=== PATIENT | female | born 1940 | race Two or more races ===

== ENCOUNTER 2023-07-07 10:45 | Inpatient (IN) | payer OTHER ==
[~2023-07-07] VITALS: Ht 154.9 cm; Wt 65.8 kg
[2023-07-07] MEDS ORDERED: SINGULAIR10 MG (15:28)
[2023-07-07] MEDS ORDERED: AMITRIPTYLINE H10 MG (15:29)
[2023-07-07] MEDS ORDERED: NEURONTIN800 MG (15:29)
[2023-07-07] MEDS ORDERED: ZANAFLEX2 M1 (15:29)
[2023-07-07] MEDS ORDERED: PANTOPRAZOLE SO40 MG (15:29)
[2023-07-07] MEDS ORDERED: PEPCID AC20 MG (15:30)
[2023-07-07] MEDS ORDERED: CYMBALTA60 MG (15:30)
[2023-07-07] MEDS ORDERED: PRAVASTATIN SOD40 MG (15:30)
[2023-07-07] MEDS ORDERED: ALDACTONE25 MG (15:30)
[2023-07-12] MEDS ORDERED: MEDROLPACK PO (10:20)
[2023-07-12] MEDS ORDERED: PERCOCET 5-3251 EACH PO (10:20)
[2023-07-12] MEDS ORDERED: AMOX-CLAV 875-1 EACH PO (10:21)
[2023-07-12] MEDS ORDERED: GABAPENTIN100 M2 PO (10:21)
[2023-07-12] MEDS ORDERED: COLACE100 MG PO (10:21)
[2023-07-12] MEDS ORDERED: NEURONTIN800 MG PO (10:21)
[2023-07-13 07:33] LABS: HEMATOCRIT 35.2 % (36.0-45.00); HEMOGLOBIN 11.5 g/dL (12.0-15.00); MEAN CELL VOLUME 99.2 fL (80.00-100.00); MEAN CORPUSCULAR HEMOGLOBIN 32.3 pg (27.00-32.0); MEAN CORPUSCULAR HGB CONC 32.6 g/dl (32.0-36.0); PLATELET COUNT 296 K/uL (150-450); RED BLOOD COUNT 3.54 M/uL (4.00-6.00)
[2023-07-13 07:51] LABS: CALCIUM 8.9 mg/dL (8.5-10.1); CREATININE SERUM 0.91 mg/dL (0.55-1.02); GFR 58.89; POTASSIUM 5.28 mEq/L (3.5-5.1)
== END 2023-07-14 16:56 | DRG 455 ==
LOC: O/R 07-12 04:50 → SURG 07-12 10:45 → SURH 07-12 15:00
PROVIDERS: ADMIT Orthopaedic Surgery Orthopaedic Surgery of the Spine; ATTEND Orthopaedic Surgery Orthopaedic Surgery of the Spine
PROC: 0SG1071 Fusion of 2 or more Lumbar Vertebral Joints with Autologous Tissue Substitute, Posterior Approach, Posterior Column, Open Approach (ICD-10-PCS; 2023-07-12)
PROC: 0ST20ZZ Resection of Lumbar Vertebral Disc, Open Approach (ICD-10-PCS; 2023-07-12)
PROC: 07DR0ZZ Extraction of Iliac Bone Marrow, Open Approach (ICD-10-PCS; 2023-07-12)
PROC: 4A1104G Monitoring of Peripheral Nervous Electrical Activity, Intraoperative, Open Approach (ICD-10-PCS; 2023-07-12)
PROC: XRGC0R7 Fusion of 2 or more Lumbar Vertebral Joints using Custom-Made Anatomically Designed Interbody Fusion Device, Open Approach, New Technology Group 7 (ICD-10-PCS; principal; 2023-07-12 12:30)
DX: M51.36 Other intervertebral disc degeneration, lumbar region (principal); M41.56 Other secondary scoliosis, lumbar region; M48.062 Spinal stenosis, lumbar region with neurogenic claudication